=== PATIENT | female | born 2000 | race Caucasian/White ===

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

== ENCOUNTER 2022-05-02 10:16 | Inpatient (IN) | payer OTHER ==
[~2022-05-02] VITALS: Ht 167.6 cm; Wt 68.2 kg
[2022-05-02] MEDS ORDERED: FLUO10CA18 PO (10:30)
[2022-05-02 11:39] LABS: HEMATOCRIT 42.6 % (36.0-47.0); HEMOGLOBIN 13.8 g/dl (12.0-15.5); MEAN CORPUSCULAR HEMOGLOBIN 30.7 pg (27.0-33.0); MEAN CORPUSCULAR HGB CONC 32.4 g/dl (32.0-36.5); MEAN CORPUSCULAR VOLUME 94.9 fl (80.0-96.0); PLATELET COUNT, AUTOMATED 202 10^3/uL (150-450); RED BLOOD COUNT 4.49 10^6/uL (4.00-5.40); WHITE BLOOD COUNT 4.7 10^3/uL (4.0-10.0)
[2022-05-02 11:59] LABS: AMPHETAMINES LEVEL URINE NEGATIVE (NEGATIVE)
[2022-05-02 12:00] LABS: BARBITURATES URINE NEGATIVE (NEGATIVE); BENZODIAZEPINES URINE NEGATIVE (NEGATIVE); COCAINE METABOLITE URINE NEGATIVE (NEGATIVE); METHADONE URINE NEGATIVE (NEGATIVE); OPIATES URINE NEGATIVE (NEGATIVE); PHENCYCLIDINE URINE NEGATIVE (NEGATIVE)
[2022-05-02 12:02] LABS: CANNABINOIDS URINE POSITIVE (NEGATIVE); ETHYL ALCOHOL (ETHANOL) 0.003 % (0.000-0.010)
[2022-05-02 12:04] LABS: ACETAMINOPHEN LEVEL < 2.0 UG/ML (10.0-20.0); ALBUMIN 4.7 G/DL (3.2-5.2); ALKALINE PHOSPHATASE 72 U/L (46-116); ALT/SGPT 25 U/L (7.0-40); AST/SGOT 32 U/L (<34); BILIRUBIN,DIRECT 0.2 MG/DL (<0.4); BILIRUBIN,TOTAL 0.7 MG/DL (0.3-1.2); BLOOD UREA NITROGEN 14 MG/DL (9-23); CALCIUM LEVEL 9.4 MG/DL (8.5-10.1); CARBON DIOXIDE LEVEL 26 MMOL/L (20-31); CHLORIDE LEVEL 105 MMOL/L (98-107); CREATININE FOR GFR 0.97 MG/DL (0.55-1.30); GLUCOSE, FASTING 76 MG/DL (60-100); POTASSIUM SERUM 4.6 MMOL/L (3.5-5.1); SALICYLATE LEVEL < 3.0 MG/DL (<30); SODIUM LEVEL 137 MMOL/L (136-145); TOTAL PROTEIN 8.1 G/DL (5.7-8.2)
[2022-05-02 12:06] LABS: THYROID STIMULATING HORMONE 1.342 uIU/ML (0.48-4.17)
[2022-05-02 12:11] LABS: HCG, SERUM QUALITATIVE NEGATIVE (NEGATIVE)
[2022-05-02] MEDS ORDERED: ONE-1TAB PO (17:20)
[2022-05-02] MEDS ORDERED: HOME MED LIST COMPLETE! XX SCH (17:25)
[2022-05-03] MEDS: NICOTINE 21MG/24HR 1 EA TRANSDERMAL TD SCH (09:00)
[2022-05-03] MEDS: MULTIVITAMINS/MINERALS THERAP 1 TAB PO SCH (09:00)
[2022-05-03] MEDS ORDERED: MOM 30ML SUSPENSION UDC PO PRN (11:35)
[2022-05-03] MEDS ORDERED: IBUPROFEN 400MG TAB PO PRN (11:35)
[2022-05-03] MEDS ORDERED: MAALOX 30 ML SUSP *UDC PO PRN (11:35)
[2022-05-03] MEDS ORDERED: traZODone 50 MG TAB PO PRN (11:35)
[2022-05-03] MEDS: FLUoxetine 10 MG CAP PO SCH (11:49)
[2022-05-03 13:46] VITALS: BP 125/80
[2022-05-04 06:33] VITALS: BP 137/66
[2022-05-04] MEDS: MULTIVITAMINS/MINERALS THERAP 1 TAB PO SCH (08:05)
[2022-05-04] MEDS: NICOTINE 21MG/24HR 1 EA TRANSDERMAL TD SCH (08:05)
[2022-05-04] MEDS: FLUoxetine 10 MG CAP PO SCH (08:05)
[2022-05-04 14:55] VITALS: BP 143/93
[2022-05-04] MEDS: diphenhydrAMINE 25MG CAP PO PRN ×2 (14:55→21:31)
[2022-05-04 18:16] VITALS: BP 131/80
[2022-05-05 06:21] VITALS: BP 116/75
[2022-05-05 07:37] LABS: CHOLESTEROL RISK RATIO 2.5 (<5); HDL CHOLESTEROL 68.4 MG/DL (>40)
[2022-05-05] MEDS: MULTIVITAMINS/MINERALS THERAP 1 TAB PO SCH (09:16)
[2022-05-05] MEDS: FLUoxetine 10 MG CAP PO SCH (09:16)
[2022-05-05] MEDS ORDERED: FLUoxetine 10 MG CAP PO ONE (10:50)
[2022-05-05 16:24] VITALS: BP 134/73
[2022-05-05] MEDS ORDERED: ONDANSETRON 4MG ORAL DISINTEGRATING TAB PO PRN (17:40)
[2022-05-05] MEDS: diphenhydrAMINE 25MG CAP PO PRN (21:16)
[2022-05-06 06:21] VITALS: BP 128/77
[2022-05-06] MEDS: MULTIVITAMINS/MINERALS THERAP 1 TAB PO SCH (12:00)
[2022-05-06] MEDS: FLUoxetine 10 MG CAP PO SCH (12:15)
[2022-05-06] MEDS: diphenhydrAMINE 25MG CAP PO PRN (15:21)
[2022-05-06 16:39] VITALS: BP 131/77
[2022-05-07 06:49] VITALS: BP 117/66
[2022-05-07] MEDS: MULTIVITAMINS/MINERALS THERAP 1 TAB PO SCH (12:00)
[2022-05-07] MEDS: FLUoxetine 10 MG CAP PO SCH (12:28)
[2022-05-07 16:14] VITALS: BP 130/70
[2022-05-07] MEDS: diphenhydrAMINE 25MG CAP PO PRN (20:22)
[2022-05-08 06:11] VITALS: BP 133/71
[2022-05-08] MEDS ORDERED: TRAZ-252 PO (08:28)
[2022-05-08] MEDS ORDERED: ABIL1TAB11 PO (08:28)
[2022-05-08] MEDS ORDERED: FLUO10CA18 PO (08:28)
[2022-05-08] MEDS: FLUoxetine 10 MG CAP PO SCH (11:52)
[2022-05-08] MEDS: MULTIVITAMINS/MINERALS THERAP 1 TAB PO SCH (11:53)
== END 2022-05-08 12:40 | disposition home or self-care (01) | DRG 885 ==
LOC: M ED 10:16 → M ED INP 05-03 11:31 → M PSY 05-03 13:41
PROVIDERS: ADMIT Student in an Organized Health Care Education/Training Program; ATTEND Student in an Organized Health Care Education/Training Program
DX: F31.9 Bipolar disorder, unspecified (principal); R45.851 Suicidal ideations; F60.89 Other specific personality disorders; F41.0 Panic disorder [episodic paroxysmal anxiety]; F17.200 Nicotine dependence, unspecified, uncomplicated; Z62.810 Personal history of physical and sexual abuse in childhood; Z91.410 Personal history of adult physical and sexual abuse; Z88.0 Allergy status to penicillin; Z79.899 Other long term (current) drug therapy; Z91.14 Patient's other noncompliance with medication regimen; Z91.52 Personal history of nonsuicidal self-harm; Z81.8 Family history of other mental and behavioral disorders

== ENCOUNTER → 2022-06-15 | Outpatient (REF) | payer OTHER ==
[~2022-06-15] MED LIST changes: +ABIL1TAB11 PO; +FLUO10CA18 PO; +ONE-1TAB PO; +TRAZ-252 PO
[2022-06-15 19:45] LABS: GC DNA AMPLIFICATION NEGATIVE (NEGATIVE)
== END ==
LOC: M LAB REF 16:22
PROVIDERS: ATTEND Student in an Organized Health Care Education/Training Program
DX: R10.30 Lower abdominal pain, unspecified (principal)

== ENCOUNTER → 2022-10-12 | Outpatient (REF) | payer OTHER ==
[2022-10-12 18:59] LABS: GC DNA AMPLIFICATION NEGATIVE (NEGATIVE)
== END ==
LOC: M LAB REF 16:16
PROVIDERS: ATTEND Student in an Organized Health Care Education/Training Program
DX: R30.0 Dysuria (principal)

== ENCOUNTER 2024-03-16 13:50 | Outpatient (CLI) | payer OTHER ==
[~2024-03-16] VITALS: Ht 167.6 cm; Wt 92.5 kg
[~2024-03-16 13:50] MED LIST changes: +FLUO-290 PO; -FLUO10CA18 PO; +MULT18TA PO; -ONE-1TAB PO
[2024-03-16] MEDS ORDERED: PRENTAB9 PO (14:05)
[2024-03-16 14:07] VITALS: BP 107/66
== END 2024-03-16 15:20 | disposition home or self-care (01) ==
LOC: M LDO 13:50
PROVIDERS: ATTEND Obstetrics & Gynecology
DX: O26.893 Other specified pregnancy related conditions, third trimester (principal); N89.8 Other specified noninflammatory disorders of vagina; Z3A.28 28 weeks gestation of pregnancy
CPT/HCPCS: 59025; 76815; G0463